=== PATIENT | female | born 1970 | race Caucasian/White ===

== ENCOUNTER 2021-11-22 06:10 | Day surgery (SDC) | payer BC ==
[~2021-11-22] VITALS: Ht 162.6 cm; Wt 98.6 kg
[~2021-11-22 06:10] MED LIST: CIPRO500 MG PO; HYDROCODON-ACE1 EA10 PO; METRONIDAZOLE500 MG PO; PREDNISONE20 MG PO
[2021-11-22] MEDS ORDERED: HYDROCODON-ACE1 EA10 PO (08:31)
--- NOTE | 2021-11-22 08:48 | NUR ---
11/22/21 0848 Terri Arthur 0826: PT ARRIVES TO PACU IN [place] WITH 6L VIA MASK IN PLACE. PT DROWSY ON ARRIVAL AND AROUSES WITH VERBAL STIMULATION. 0830: O2 REMOVED AT THIS TIME, PT ABLE TO MAINTAIN SATS GREATER THAN 94% ON RA. PT DENIES ANY NAUSEA OR PAIN AT THIS TIME. 0845: PT CONVERSING APPROPRIATELY WITH THIS RN. RESP EVEN AND UNLABORED. CONT TO DENY NAUSEA OR PAIN, TOLERATES SIPS OF WATER WELL.
--- NOTE | 2021-11-22 10:25 | OR ---
[facility] [address], [place] [address] Signed DATE OF OPERATION: 11/22/2021 SURGEON: Wilfrid Vidales MD PREOPERATIVE DIAGNOSIS: Mucous cyst, right long finger. POSTOPERATIVE DIAGNOSIS: Mucous cyst, right long finger. PROCEDURE PERFORMED: Excision of cyst, right long finger. REHAB NURSING TECH: None. ANESTHESIA: MAC with finger block. TOURNIQUET TIME: 10 minutes for finger tourniquet only. 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 Risks and benefits of operative treatment were discussed and she elected to proceed. DESCRIPTION OF PROCEDURE: Once consent was obtained, she was taken to the operating room. After adequate anesthesia, she was placed on operating table and the hand was prepped and draped in a standard sterile fashion. A finger tourniquet was fashioned using a glove tip. The mucous cyst was approached through a dorsal longitudinal incision, carried through skin and subcutaneous tissue. Skin flaps were elevated medially and laterally as there was one on each side. The dissection was taken carefully around the cyst. The cyst was removed using the rongeur. The dorsal capsule was split and the underlying osteophyte was removed. Similar procedure was performed on the other side of the finger at the DIP joint. Her contours were quite good at the end of the procedure. The wound was copiously irrigated with normal saline, closed with 3-0 nylon and dressed with bacitracin, Adaptic, and gauze. She tolerated the procedure well. All sponge, needle, and instrument counts were correct. Electronically Signed By: WILFRID VIDALES MD 11/22/21 1025 PATIENT NAME: WENDY VALDES OPERATIVE REPORT DATE OF : 66 REPORT #: [id number] PHYSICIAN: WILFRID VIDALES MD PCP: YEIMY GERMAIN MD REPORT IS CONFIDENTIAL AND NOT TO BE RELEASED WITHOUT AUTHORIZATION [address] [address] Signed Wilfrid Vidales MD BA/MODL /[id number] Copies: ~ Electronically Signed By: WILFRID VIDALES MD 11/22/21 1025 PATIENT NAME: WENDY VALDES OPERATIVE REPORT DATE OF : 66 REPORT #: [id number] PHYSICIAN: WILFRID VIDALES MD PCP: YEIMY GERMAIN MD REPORT IS CONFIDENTIAL AND NOT TO BE RELEASED WITHOUT AUTHORIZATION
== END 2021-11-22 09:10 | disposition home or self-care (01) ==
LOC: DS 06:10
PROVIDERS: ATTEND Specialist
PROC: 0RBW0ZZ Excision of Right Finger Phalangeal Joint, Open Approach (ICD-10-PCS; principal; 2021-11-22 07:40)
DX: M67.441 Ganglion, right hand (principal); M19.041 Primary osteoarthritis, right hand
CPT/HCPCS: J0690; J2001; J2250; J2405; J2704; J2795; J7121